=== PATIENT | female | born 1945 | race Caucasian/White ===

== ENCOUNTER 2017-12-29 17:37 | Inpatient (IN) | payer MEDICARE, OTHER ==
[~2017-12-29] VITALS: Ht 144.8 cm; Wt 87.4 kg
[2017-12-29 18:32] VITALS: BP 100/77; PULSE 71; TEMP 97.4
[2017-12-29] MEDS ORDERED: HCTZ 25MG TAB25 MG PO (18:48)
[2017-12-29] MEDS ORDERED: ZANTAC 150MG T150 MG PO (18:48)
[2017-12-29] MEDS ORDERED: ASPIRIN 81M81 MG/TA2 PO (18:48)
[2017-12-29] MEDS ORDERED: LIPITOR 40MG TA40 MG PO (18:49)
[2017-12-29] MEDS ORDERED: TOPROL XL 50MG50 MG PO (18:49)
[2017-12-29] MEDS ORDERED: NEURONTIN600 MG/TAB PO (18:49)
[2017-12-29] MEDS ORDERED: CARAFATE 1GM1 G PO (18:50)
[2017-12-29] MEDS ORDERED: NORCO 325 MG-101 TAB PO (18:50)
[2017-12-29] MEDS ORDERED: SENNA8.6 MG PO (18:50)
[2017-12-29] MEDS ORDERED: BIOTIN5000 MCG PO (18:51)
[2017-12-29] MEDS ORDERED: PLAVIX 75MG TAB75 MG PO (18:51)
[2017-12-29] MEDS ORDERED: VIMPAT100 MG PO (18:52)
[2017-12-29] MEDS ORDERED: KEPPRA 500MG500 MG PO (18:52)
[2017-12-29 19:53] VITALS: BP 102/59; PULSE 70; TEMP 98.8
[2017-12-30 00:02] VITALS: BP 110/57; PULSE 75; TEMP 98.6
[2017-12-30 05:21] VITALS: BP 110/65; PULSE 96; TEMP 98.3
[2017-12-30 07:31] LABS: BASO % 0.6 % (0.0-2.0); EOS # 0.2 (0.0-0.7); EOS % 4.3 % (0-4.0); GRAN # 3.3 (1.4-6.5); GRAN % 61.5 % (42.2-75.2); HEMATOCRIT 37.8 % (37.0-47.0); LYMPH # 1.4 (1.2-3.4); LYMPH % 26.8 % (20.0-51.0); MEAN CELL VOLUME 95 fl (80.0-100.0); MEAN CORPUSCULAR HEMOGLOBIN 33 pg (27.0-31.0); MEAN CORPUSCULAR HGB CONC 34 g/dl (33.0-37.0); MONO # 0.3 (0.1-0.6); MONO % 6.2 % (1.7-9.3); PLATELET COUNT 151 K/mm3 (130-400); RED BLOOD COUNT 3.99 M/mm3 (4.10-5.30); REDCELL DISTRIBUTION WIDTH-CV 13.1 % (11.5-14.5)
[2017-12-30 08:25] LABS: CALCIUM 8.9 mg/dL (8.4-10.2); CREATININE, serum 0.88 mg/dL (0.52-1.25); POTASSIUM 3.1 mmol/L (3.4-5.0)
[2017-12-30 08:37] VITALS: BP 94/51; PULSE 96; TEMP 97.2
[2017-12-30 11:09] VITALS: BP 120/64; PULSE 89; TEMP 98.7
[2017-12-30 13:30] LABS: MUCOUS Present /lpf; PH 7 (5-8); SQUAMOUS EPITHELIAL 20-50 /hpf; URINE APPEARANCE Cloudy; URINE BACTERIA Rare /hpf; URINE BILIRUBIN Negative (NEGATIVE); URINE BLOOD Negative (NEGATIVE); URINE COLOR Yellow; URINE GLUCOSE Negative (NEGATIVE); URINE KETONE Negative (NEGATIVE); URINE LEUKOCYTE ESTERASE 3+ (NEGATIVE); URINE NITRATE Negative (NEGATIVE); URINE PROTEIN(semi-quant) Negative (NEGATIVE); URINE UROBILINOGEN Negative (NEGATIVE); URINE WBC 20-50 /hpf
[2017-12-30 13:34] LABS: COLLECTION METHOD CLEAN CATCH
[2017-12-30] MEDS ORDERED: RYTARY1 CE2 PO (15:04)
[2017-12-30 16:00] VITALS: BP 118/61; PULSE 91; TEMP 98.1
[2017-12-30 21:20] VITALS: BP 115/55; PULSE 78; TEMP 98.3
[2017-12-31 02:06] VITALS: BP 115/64; PULSE 81; TEMP 98.5
[2017-12-31 07:34] LABS: BASO % 0.6 % (0.0-2.0); EOS # 0.2 (0.0-0.7); EOS % 4.7 % (0-4.0); GRAN # 2.4 (1.4-6.5); GRAN % 51.4 % (42.2-75.2); HEMATOCRIT 37.3 % (37.0-47.0); HEMOGLOBIN 12.8 g/dl (12.5-16.0); LYMPH # 1.7 (1.2-3.4); LYMPH % 35.5 % (20.0-51.0); MEAN CELL VOLUME 95 fl (80.0-100.0); MEAN CORPUSCULAR HEMOGLOBIN 33 pg (27.0-31.0); MEAN CORPUSCULAR HGB CONC 34 g/dl (33.0-37.0); MEAN PLATELET VOLUME 11.2 fl (7.4-10.4); MONO # 0.4 (0.1-0.6); MONO % 7.4 % (1.7-9.3); PLATELET COUNT 146 K/mm3 (130-400); RED BLOOD COUNT 3.94 M/mm3 (4.10-5.30); REDCELL DISTRIBUTION WIDTH-CV 13.1 % (11.5-14.5)
[2017-12-31 07:52] LABS: CALCIUM 9.1 mg/dL (8.4-10.2); CREATININE, serum 0.9 mg/dL (0.52-1.25); PHOSPHOROUS 3.6 mg/dL (2.5-4.5); POTASSIUM 3.6 mmol/L (3.4-5.0)
[2017-12-31 08:47] VITALS: BP 132/64; PULSE 95; TEMP 98.1
[2017-12-31 11:47] VITALS: BP 126/66; PULSE 103
[2017-12-31 12:44] VITALS: BP 110/60; PULSE 93; TEMP 98.7
[2017-12-31 16:10] VITALS: BP 112/74; PULSE 81; TEMP 98.7
[2017-12-31 20:11] VITALS: BP 121/79; PULSE 93; TEMP 98
[2018-01-01 00:50] VITALS: BP 116/63; PULSE 84; TEMP 98.1
[2018-01-01 03:53] VITALS: BP 143/81; PULSE 89; TEMP 98.2
[2018-01-01 07:21] LABS: BASO % 0.5 % (0.0-2.0); EOS # 0.3 (0.0-0.7); EOS % 5.6 % (0-4.0); GRAN # 3.2 (1.4-6.5); GRAN % 56.4 % (42.2-75.2); HEMATOCRIT 37.2 % (37.0-47.0); HEMOGLOBIN 12.5 g/dl (12.5-16.0); LYMPH # 1.6 (1.2-3.4); LYMPH % 29.4 % (20.0-51.0); MEAN CELL VOLUME 96 fl (80.0-100.0); MEAN CORPUSCULAR HEMOGLOBIN 32 pg (27.0-31.0); MEAN CORPUSCULAR HGB CONC 34 g/dl (33.0-37.0); MEAN PLATELET VOLUME 11.5 fl (7.4-10.4); MONO # 0.4 (0.1-0.6); MONO % 7.7 % (1.7-9.3); PLATELET COUNT 152 K/mm3 (130-400); RED BLOOD COUNT 3.88 M/mm3 (4.10-5.30); REDCELL DISTRIBUTION WIDTH-CV 13.2 % (11.5-14.5)
[2018-01-01 07:31] LABS: CALCIUM 9.2 mg/dL (8.4-10.2); CREATININE, serum 0.88 mg/dL (0.52-1.25); MAGNESIUM 2.1 mg/dL (1.6-2.3); PHOSPHOROUS 3.7 mg/dL (2.5-4.5); POTASSIUM 3.9 mmol/L (3.4-5.0)
[2018-01-01 07:51] VITALS: BP 102/64; BP 106/62; PULSE 80; PULSE 95; TEMP 97.8; TEMP 98.1
[2018-01-01 11:55] VITALS: BP 119/60; PULSE 79; TEMP 98.2
[2018-01-01 17:25] VITALS: BP 125/67; PULSE 79; TEMP 98.2
[2018-01-01 20:15] VITALS: BP 140/73; PULSE 77; TEMP 97.8
[2018-01-02 00:44] VITALS: BP 111/58; PULSE 75; TEMP 98.6
[2018-01-02 04:27] VITALS: BP 110/65; PULSE 74; TEMP 97.9
[2018-01-02 06:43] LABS: BASO % 0.7 % (0.0-2.0); EOS # 0.3 (0.0-0.7); EOS % 5.3 % (0-4.0); GRAN # 3.5 (1.4-6.5); GRAN % 60.8 % (42.2-75.2); HEMATOCRIT 39.1 % (37.0-47.0); HEMOGLOBIN 13.2 g/dl (12.5-16.0); LYMPH # 1.4 (1.2-3.4); LYMPH % 25.2 % (20.0-51.0); MEAN CELL VOLUME 96 fl (80.0-100.0); MEAN CORPUSCULAR HEMOGLOBIN 32 pg (27.0-31.0); MEAN CORPUSCULAR HGB CONC 34 g/dl (33.0-37.0); MEAN PLATELET VOLUME 11.5 fl (7.4-10.4); MONO # 0.4 (0.1-0.6); MONO % 7.6 % (1.7-9.3); PLATELET COUNT 156 K/mm3 (130-400); RED BLOOD COUNT 4.09 M/mm3 (4.10-5.30)
[2018-01-02 07:09] LABS: CALCIUM 9.3 mg/dL (8.4-10.2); CREATININE, serum 0.89 mg/dL (0.52-1.25); POTASSIUM 3.7 mmol/L (3.4-5.0)
[2018-01-02 07:55] VITALS: BP 108/58; PULSE 80; TEMP 97.3
[2018-01-02 10:59] VITALS: BP 115/65; PULSE 83; TEMP 98.8
[2018-01-02 15:14] VITALS: BP 106/56; PULSE 81; TEMP 99.7
[2018-01-02 20:21] VITALS: BP 115/51; PULSE 65; TEMP 98.7
[2018-01-03] VITALS (8 sets, daily range): BP systolic 105–130; BP diastolic 60–74; PULSE 81–107; TEMP 97.3–98.7
[2018-01-04 00:19] VITALS: BP 105/54; PULSE 93; TEMP 98
[2018-01-04 03:57] VITALS: BP 104/51; PULSE 88; TEMP 97.9
[2018-01-04 07:29] LABS: CALCIUM 9.5 mg/dL (8.4-10.2); CREATININE, serum 1.06 mg/dL (0.52-1.25); MAGNESIUM 2.1 mg/dL (1.6-2.3); POTASSIUM 3.7 mmol/L (3.4-5.0)
[2018-01-04 08:42] VITALS: BP 140/67; PULSE 103; TEMP 98.8
[2018-01-04 12:10] VITALS: BP 111/59; PULSE 65; TEMP 98
[2018-01-04 15:44] VITALS: BP 103/55; PULSE 88; TEMP 98
[2018-01-04 19:59] VITALS: BP 99/50; PULSE 87; TEMP 98.4
[2018-01-05] VITALS (7 sets, daily range): BP systolic 91–128; BP diastolic 39–68; PULSE 68–104; TEMP 97.8–98.7
[2018-01-05 04:37] LABS: BASO % 0.5 % (0.0-2.0); EOS # 0.4 (0.0-0.7); EOS % 4.8 % (0-4.0); GRAN % 53.9 % (42.2-75.2); HEMATOCRIT 39.4 % (37.0-47.0); HEMOGLOBIN 13.4 g/dl (12.5-16.0); LYMPH # 2.4 (1.2-3.4); LYMPH % 32.8 % (20.0-51.0); MEAN CELL VOLUME 95 fl (80.0-100.0); MEAN CORPUSCULAR HEMOGLOBIN 32 pg (27.0-31.0); MEAN CORPUSCULAR HGB CONC 34 g/dl (33.0-37.0); MEAN PLATELET VOLUME 11.2 fl (7.4-10.4); MONO # 0.6 (0.1-0.6); MONO % 7.7 % (1.7-9.3); PLATELET COUNT 164 K/mm3 (130-400); RED BLOOD COUNT 4.14 M/mm3 (4.10-5.30); REDCELL DISTRIBUTION WIDTH-CV 13.4 % (11.5-14.5)
[2018-01-05 04:47] LABS: CALCIUM 9.5 mg/dL (8.4-10.2); CREATININE, serum 1.09 mg/dL (0.52-1.25); POTASSIUM 3.8 mmol/L (3.4-5.0)
[2018-01-05] MEDS ORDERED: ATIVAN 2MG/ML2 MG/ML IV (18:26)
[2018-01-05] MEDS ORDERED: VIMPAT200 MG PO (18:26)
[2018-01-05] MEDS ORDERED: KEPPRA1000 MG PO (18:26)
[2018-01-05] MEDS ORDERED: Florastor PO (18:27)
[2018-01-05] MEDS ORDERED: SINEMET 25/101 UDTAB PO (18:27)
[2018-01-05] MEDS ORDERED: MELAT3MGTAB PO (18:28)
[2018-01-05] MEDS ORDERED: PROBIOTIC ACID1 EAC3 PO (18:28)
== END 2018-01-05 19:40 | disposition short-term general hospital (02) | DRG 101 ==
LOC: MEDICAL 18:15
PROVIDERS: Internal Medicine; Nurse Practitioner; Nurse Practitioner Family; Physician Assistant
PROC: 02HV33Z Insertion of Infusion Device into Superior Vena Cava, Percutaneous Approach (ICD-10-PCS; principal; 2018-01-05)
DX: R56.9 Unspecified convulsions (principal); J02.0 Streptococcal pharyngitis; B95.0 Streptococcus, group A, as the cause of diseases classified elsewhere; I10 Essential (primary) hypertension; I69.311 Memory deficit following cerebral infarction; I25.10 Atherosclerotic heart disease of native coronary artery without angina pectoris; G89.29 Other chronic pain; M54.9 Dorsalgia, unspecified; G20 Parkinson's disease; Z95.5 Presence of coronary angioplasty implant and graft; E87.6 Hypokalemia
CPT/HCPCS: 99222-AI; 99232-AI; 99239; J1644; J1953; J2060; J2270; J2405; J2550

== ENCOUNTER 2018-07-18 08:08 | Day surgery (SDC) | payer MEDICARE, MEDICAID ==
[2018-07-18] VITALS (9 sets, daily range): BP systolic 92–153; BP diastolic 56–92; PULSE 56–70
[~2018-07-18] VITALS: Ht 144.8 cm; Wt 80.6 kg
[~2018-07-18 08:08] MED LIST: ASPIRIN 81M81 MG/TA2 PO; ATIVAN 2MG/ML2 MG/ML IV; BIOTIN5000 MCG PO; CARAFATE 1GM1 G PO; Florastor PO; HCTZ 25MG TAB25 MG PO; KEPPRA 500MG500 MG PO; KEPPRA1000 MG PO; LIPITOR 40MG TA40 MG PO; MELAT3MGTAB PO; NEURONTIN600 MG/TAB PO; NORCO 325 MG-101 TAB PO; PLAVIX 75MG TAB75 MG PO; PROBIOTIC ACID1 EAC3 PO; RYTARY1 CE2 PO; SENNA8.6 MG PO; SINEMET 25/101 UDTAB PO; TOPROL XL 50MG50 MG PO; VIMPAT100 MG PO; VIMPAT200 MG PO; ZANTAC 150MG T150 MG PO
[2018-07-18] MEDS ORDERED: NUEDEXTA 20 MG-1 CAP PO (08:39)
[2018-07-18] MEDS ORDERED: PROTONIX 40MG T40 MG PO (08:40)
[2018-07-18] MEDS ORDERED: ELIQUIS 5MG PO (08:41)
[2018-07-18] MEDS ORDERED: VITAMIN B12 681 TAB PO (08:41)
[2018-07-18] MEDS ORDERED: CLARITIN 1010 MG/TAB PO (08:42)
[2018-07-18 09:54] LABS: HEMATOCRIT 41.8 % (37.0-47.0); HEMOGLOBIN 14.1 g/dl (12.5-16.0); MEAN CELL VOLUME 96 fl (80.0-100.0); MEAN CORPUSCULAR HEMOGLOBIN 33 pg (27.0-31.0); MEAN CORPUSCULAR HGB CONC 34 g/dl (33.0-37.0); MEAN PLATELET VOLUME 11.5 fl (7.4-10.4); PLATELET COUNT 148 K/mm3 (130-400); RED BLOOD COUNT 4.34 M/mm3 (4.10-5.30); REDCELL DISTRIBUTION WIDTH-CV 12.3 % (11.5-14.5)
[2018-07-18 09:57] LABS: INR 1.1 (0.8-3.0); PROTHROMBIN TIME 12.3 SECONDS (9.7-12.8)
[2018-07-18 10:00] LABS: CREATININE, serum 1.08 mg/dL (0.52-1.25); POTASSIUM 4.4 mmol/L (3.4-5.0)
[2018-07-18] MEDS ORDERED: NITROSTAT0.4 MG/TAB SL (12:10)
== END 2018-07-18 16:00 | disposition home or self-care (01) ==
LOC: COL.CAR 08:08
PROVIDERS: Internal Medicine Cardiovascular Disease
DX: I25.10 Atherosclerotic heart disease of native coronary artery without angina pectoris (principal); R94.39 Abnormal result of other cardiovascular function study; I48.91 Unspecified atrial fibrillation; G47.33 Obstructive sleep apnea (adult) (pediatric); E78.5 Hyperlipidemia, unspecified; Z79.01 Long term (current) use of anticoagulants; Z79.02 Long term (current) use of antithrombotics/antiplatelets; Z79.82 Long term (current) use of aspirin; Z86.73 Personal history of transient ischemic attack (TIA), and cerebral infarction without residual deficits
CPT/HCPCS: J1644; J2060; J2250; J3010; Q9967

== ENCOUNTER → 2019-05-23 | Outpatient (CLI) | payer MEDICARE, MEDICAID ==
[~2019-05-23] MED LIST changes: +CLARITIN 1010 MG/TAB PO; +ELIQUIS 5MG PO; +NITROSTAT0.4 MG/TAB SL; +NUEDEXTA 20 MG-1 CAP PO; +PROTONIX 40MG T40 MG PO; +VITAMIN B12 681 TAB PO
== END ==
LOC: COL.RAD 16:11
DX: Z96.652 Presence of left artificial knee joint (principal)

== ENCOUNTER → 2019-05-24 | Outpatient (CLI) | payer MEDICARE, MEDICAID | LOC: ZCOL.LAB 15:36 | DX: G40.409 Other generalized epilepsy and epileptic syndromes, not intractable, without status epilepticus (principal) ==

== ENCOUNTER → 2019-05-24 | Outpatient (REF) ==
[2019-05-24 09:33] LABS: COLLECTION METHOD CLEAN CATCH
[2019-05-24 09:59] LABS: PH 7 (5-8); SQUAMOUS EPITHELIAL 0-2 /hpf; URINE APPEARANCE Hazy; URINE BACTERIA Rare /hpf; URINE BILIRUBIN Negative (NEGATIVE); URINE BLOOD 3+ (NEGATIVE); URINE COLOR Straw; URINE GLUCOSE Negative (NEGATIVE); URINE KETONE Negative (NEGATIVE); URINE LEUKOCYTE ESTERASE 2+ (NEGATIVE); URINE NITRATE Negative (NEGATIVE); URINE PROTEIN(semi-quant) Negative (NEGATIVE); URINE UROBILINOGEN Negative (NEGATIVE); URINE WBC 20-50 /hpf
== END ==
LOC: ZCOL.LAB 09:30
PROVIDERS: Internal Medicine
DX: Z01.89 Encounter for other specified special examinations (principal)

== ENCOUNTER → 2019-06-04 | Outpatient (CLI) | payer MEDICARE, MEDICAID ==
[2019-06-04 20:20] LABS: COLLECTION METHOD CLEAN CATCH
[2019-06-04 20:32] LABS: MUCOUS Present /lpf; PH 5 (5-8); URINE APPEARANCE Cloudy; URINE BACTERIA None Seen /hpf; URINE BILIRUBIN Negative (NEGATIVE); URINE BLOOD Negative (NEGATIVE); URINE CALCIUM OXALATE CRYSTAL Present /hpf; URINE COLOR Amber; URINE GLUCOSE Negative (NEGATIVE); URINE KETONE Trace (NEGATIVE); URINE LEUKOCYTE ESTERASE Negative (NEGATIVE); URINE NITRATE Negative (NEGATIVE); URINE PROTEIN(semi-quant) Negative (NEGATIVE); URINE RBC None Seen /hpf; URINE UROBILINOGEN Negative (NEGATIVE); URINE WBC None Seen /hpf
== END ==
LOC: ZCOL.LAB 19:07
PROVIDERS: Internal Medicine
DX: N39.0 Urinary tract infection, site not specified (principal)

== ENCOUNTER → 2020-01-14 | Outpatient (CLI) | payer MEDICARE, MEDICAID | LOC: COL.RAD 09:19 | DX: Z01.812 Encounter for preprocedural laboratory examination (principal); I67.82 Cerebral ischemia; F03.90 Unspecified dementia, unspecified severity, without behavioral disturbance, psychotic disturbance, mood disturbance, and anxiety | CPT/HCPCS: Q9967 ==